=== PATIENT | female | born 1965 ===

== ENCOUNTER 2020-10-28 05:08 | Day surgery (SDC) | payer OTHER ==
[~2020-10-28 05:08] MED LIST: SYNTHROID88 MCG PO
[2020-10-28] MEDS ORDERED: LEVOFLOXACIN500 MG PO (08:49)
[2020-10-28] MEDS ORDERED: PERCOCET 5-3251 EACH PO (08:49)
== END 2020-10-28 16:05 | disposition home or self-care (01) ==
LOC: CIR.AMB 05:08
PROVIDERS: ATTEND Obstetrics & Gynecology Gynecology
DX: N81.11 Cystocele, midline (principal); N39.3 Stress incontinence (female) (male); Z20.822 Contact with and (suspected) exposure to COVID-19
CPT/HCPCS: 57240; 57288; C1771